=== PATIENT | female | born 1960 | race African-American/Black ===

== ENCOUNTER 2018-12-29 16:00 | Emergency (ER) | payer OTHER ==
[~2018-12-29] VITALS: Ht 167.6 cm; Wt 63.5 kg
[~2018-12-29 16:00] MED LIST: IBUPROFEN; NORCO 5-325 TA1 EACH PO; VALIUM5 MG PO
[2018-12-29] MEDS ORDERED: NORCO 5-325 TA1 EAC1 PO ×2 (16:43→17:11)
[2018-12-29] MEDS ORDERED: CENTANY30 GM TOP (16:43)
[2018-12-29] MEDS ORDERED: NAPROSYN500 MG PO (16:43)
[2018-12-29] MEDS ORDERED: KEFLEX500 M1 PO (17:12)
[2018-12-29 17:33] VITALS: BP 138/72
== END 2018-12-29 17:34 | disposition home or self-care (01) ==
LOC: M.ERS 16:00
DX: S92.421A Displaced fracture of distal phalanx of right great toe, initial encounter for closed fracture (principal); Z91.041 Radiographic dye allergy status; Z90.49 Acquired absence of other specified parts of digestive tract; X58.XXXA Exposure to other specified factors, initial encounter; Y92.89 Other specified places as the place of occurrence of the external cause; Y93.89 Activity, other specified; Y99.8 Other external cause status